=== PATIENT | male | born 1945 | race Caucasian/White ===

== ENCOUNTER 2021-02-09 08:20 | Outpatient (CLI) | payer MEDICARE, SELFPAY ==
[2021-02-09 09:12] LABS: Alanine Aminotransferase 23 U/L (16-63); Albumin Level 3.5 g/dL (3.4-5.0); Alkaline Phosphatase 58 U/L (46-116); Aspartate Amino Transferase 18 U/L (15-37); Bilirubin Direct 0.2 mg/dL (0-0.2); Bilirubin,Total 0.8 mg/dL (0.00-1.00); Cholesterol 140 mg/dL (0-200); HDL Direct 56 mg/dL (40-60); LDL Cholesterol Calculated 64 mg/dL (<130); Total Protein 6.3 g/dL (6.4-8.2); Triglycerides 102 mg/dL (0-150)
== END 2021-02-09 08:21 | disposition home or self-care (01) ==
DX: I25.10 Atherosclerotic heart disease of native coronary artery without angina pectoris (principal)
CPT/HCPCS: 36415; 80061; 80076

== ENCOUNTER 2021-02-17 15:27 | Outpatient (CLI) | payer MEDICARE, SELFPAY ==
--- NOTE | 2021-02-17 15:59 | ECG_ITS ---
Measurements Intervals [place] Rate: 61 P: 41 AL: 189 QRS: 22 QRSD: 98 T: 42 QT: 389 QTc: 394 Interpretive Statements SINUS RHYTHM BASELINE ARTIFACT- III, AVF NORMAL ECG Electronically Signed On 02-17-2021 20:28:59 CDT by Marck Bell D.O.
[2021-02-17 16:03] LABS: Hematocrit 39.5 % (42.0-52.0)
[2021-02-17 16:12] LABS: Hemoglobin A1C 6.2 % (<5.7)
[2021-02-17 16:19] LABS: Albumin Level 3.9 g/dL (3.5-5.1); Estimated Glomerular Filt Rate 35; Glucose 104 mg/dL (75-110)
== END 2021-02-17 15:28 | disposition home or self-care (01) ==
PROVIDERS: Visit Provider Orthopaedic Surgery
DX: M17.11 Unilateral primary osteoarthritis, right knee (principal); E11.9 Type 2 diabetes mellitus without complications; I10 Essential (primary) hypertension; Z01.818 Encounter for other preprocedural examination
CPT/HCPCS: 36415; 82040; 82565; 82947; 83036; 85014; 85018; 93005

== ENCOUNTER 2021-04-12 13:21 | Outpatient (CLI) | payer MEDICARE, SELFPAY ==
[2021-04-12 15:30] LABS: Basophils Percent Auto 0.6 % (0.2-1.2); Eosinophils Absolute Auto 0.2 K/mm3 (0-0.3); Eosinophils Percent Auto 2.9 % (0-4.4); Hemoglobin 13.9 g/dL (14.0-18.0); Immature Granulocyte Absolute 0.03 K/mm3 (0.00-0.031); Immature Granulocyte Percent A 0.4 % (0-0.5); Lymphocytes Absolute Auto 2.24 K/mm3 (0.9-3.2); Lymphocytes Percent Auto 31.2 % (18.3-44.2); Mean Corpuscular HGB Conc 33.9 g/dl (32-36); Mean Corpuscular Hemoglobin 30.2 pg (26-34); Mean Corpuscular Volume 89.1 fl (80-100); Mean Platelet Volume 9.2 fl (7.4-10.4); Monocytes Absolute Auto 0.7 K/mm3 (0.1-0.6); Monocytes Percent Auto 9.2 % (2.6-8.5); Neutrophils Percent Auto 55.7 % (45.5-73.1); Platelet Count Result 217 k/mm3 (150-375); Red Cell Distribution Width 13.2 % (11.5-14.5); White Blood Count 7.2 K/mm3 (4.5-10.0)
[2021-04-12 15:45] LABS: Hemoglobin A1C 6.3 % (<5.7)
[2021-04-12 15:48] LABS: Albumin Level 3.8 g/dL (3.5-5.1)
[2021-04-12 15:54] LABS: Anion Gap 8 mmol/L (8-16); Blood Urea Nitrogen 26 mg/dL (9-20); Carbon Dioxide 24 mmol/L (22-30); Chloride 101 mmol/L (98-107); Estimated Glomerular Filt Rate 39; Glucose 114 mg/dL (65-110); Potassium 4.2 mmol/L (3.4-5.0); Sodium 133 mmol/L (137-145)
[2021-04-12 15:55] LABS: Urine Cotinine NEGATIVE
== END 2021-04-12 13:22 | disposition home or self-care (01) ==
PROVIDERS: Anesthesiology; Visit Provider Orthopaedic Surgery
DX: M17.11 Unilateral primary osteoarthritis, right knee (principal); E11.9 Type 2 diabetes mellitus without complications; Z01.818 Encounter for other preprocedural examination
CPT/HCPCS: 36415; 80048; 80307; 82040; 83036; 85025; 87081

== ENCOUNTER 2021-04-24 11:00 | Outpatient (CLI) | payer MEDICARE, SELFPAY ==
[2021-04-24 11:15] LABS: Basophils Absolute Auto 0.05 K/mm3 (0.00-0.10); Basophils Percent Auto 0.6 % (0.0-1.0); Eosinophils Percent Auto 2.5 % (1.0-6.0); Hematocrit 43.2 % (37.0-46.0); Hemoglobin 14.6 g/dL (12.4-15.3); Immature Granulocyte Absolute 0.03 K/mm3 (0.00-0.00); Immature Granulocyte Percent A 0.4 % (0.0-0.0); Lymphocytes Absolute Auto 1.92 K/mm3 (1.10-4.50); Lymphocytes Percent Auto 23.8 % (18.0-42.0); Mean Corpuscular HGB Conc 33.8 g/dL (32.0-36.0); Mean Corpuscular Hemoglobin 30.3 pg (27.0-31.0); Mean Corpuscular Volume 89.6 fL (78.0-102.0); Mean Platelet Volume 8.9 fl (8.7-11.0); Monocytes Absolute Auto 0.77 K/mm3 (0.10-0.90); Monocytes Percent Auto 9.5 % (2.0-11.0); Neutrophils Absolute Auto 5.1 K/mm3 (1.7-7.2); Neutrophils Percent Auto 63.2 % (50.0-70.0); Platelet Count Result 245 K/mm3 (150-420); Red Blood Count 4.82 M/mm3 (4.70-6.10); Red Cell Distribution Width 13.1 % (11.6-14.4); White Blood Count 8.1 K/mm3 (4.8-10.8)
[2021-04-24 11:59] LABS: Alanine Aminotransferase 20 U/L (16-63); Albumin Level 3.4 g/dL (3.4-5.0); Alkaline Phosphatase 80 U/L (46-116); Anion Gap 12 mmol/L (8-16); Aspartate Amino Transferase 15 U/L (15-37); Bilirubin,Total 0.6 mg/dL (0.00-1.00); Blood Urea Nitrogen 28 mg/dL (7-18); Calcium 9.1 mg/dL (8.5-10.1); Carbon Dioxide 25 mmol/L (21-32); Chloride 103 mmol/L (98-108); Estimated Glomerular Filt Rate 36; Glucose 110 mg/dL (70-99); Osmolality Calculated 296 mOsm/kg (285-295); Potassium 4.7 mmol/L (3.5-5.1); Sodium 140 mmol/L (136-145)
== END 2021-04-24 11:01 | disposition home or self-care (01) ==
LOC: CHSLAB 11:05
PROVIDERS: Visit Provider Nurse Practitioner Family
DX: H92.09 Otalgia, unspecified ear (principal); I10 Essential (primary) hypertension; N28.89 Other specified disorders of kidney and ureter
CPT/HCPCS: 36415; 80053; 85025

== ENCOUNTER 2021-06-13 10:52 | Outpatient (CLI) | payer MEDICARE, SELFPAY ==
[2021-06-13 13:00] LABS: Urine Cotinine NEGATIVE
== END 2021-06-13 10:53 | disposition home or self-care (01) ==
LOC: ANHSURGERY 10:57
PROVIDERS: Visit Provider Orthopaedic Surgery
DX: Z01.812 Encounter for preprocedural laboratory examination (principal); M17.11 Unilateral primary osteoarthritis, right knee; Z51.81 Encounter for therapeutic drug level monitoring; Z79.899 Other long term (current) drug therapy
CPT/HCPCS: 80307; 86850; 86900; 86901

== ENCOUNTER 2021-06-22 01:12 | Day surgery (SDC) | payer MEDICARE, SELFPAY ==
[2021-04-12 13:46] VITALS: BP 138/70; PULSE 75; RESP 18; TEMP 36.8; O2SAT 94
[2021-04-12 14:20] VITALS: BMI 37.6
[2021-06-08 14:49] VITALS: BMI 36.9
--- NOTE | 2021-06-08 14:53 | PC.NURSE ---
PT STATES NO CHANGE IN HEALTH HX SINCE LAST INTERVIEW ON 04/12/21
--- NOTE | 2021-06-21 13:58 | WPDANESEPPF ---
Anes - Initial Pre Proc Eval Procedure: Operation Date: 06/22/21 07:30 Proposed Procedures p Right Total Knee Arthroplasty - Aristeo Islas MD Date/Time: 06/21/21 13:58 Surgeon: Aristeo Islas MD Pre Op Diagnosis: primary OA right knee Patient Data Age: 76 Gender: M Height: 1.75 m Weight: 113.4 kg Last Vital Signs Temp 36.8 C 04/12/21 13:46 Pulse 75 04/12/21 13:46 Resp 18 04/12/21 13:46 BP 138/70 04/12/21 13:46 Pulse Ox 94 04/12/21 13:46 Allergies Allergy/AdvReac Type Severity Reaction Status Date / Time Penicillins Allergy Unknown ITCHING, Verified 06/08/21 14:28 SWELLING Home Medications Medication Instructions Recorded Confirmed Type aspirin 81 mg tablet,delayed 81 mg PO EVERY OTHER DAY 01/24/21 06/22/21 History release cholecalciferol (vitamin D3) 10 10 mcg PO DAILY 01/24/21 06/22/21 History mcg (400 unit) capsule diclofenac sodium 1 % topical gel 2 g TOPICAL QID PRN 01/24/21 06/08/21 History fluticasone propionate 50 2 spray INTRANASAL DAILY 01/24/21 06/22/21 History mcg/actuation nasal spray,suspension glucose 4 gram chewable tablet 4 g PO Q15M PRN 01/24/21 06/08/21 History isosorbide mononitrate 60 mg 60 mg PO QAM 01/24/21 06/22/21 History tablet,extended release 24 hr ketoconazole 2 % topical cream 1 applic TOPICAL DAILY 01/24/21 06/08/21 History metoprolol succinate 50 mg 50 mg PO HS 01/24/21 06/22/21 History tablet,extended release 24 hr pioglitazone 30 mg tablet 30 mg PO QAM 01/24/21 06/22/21 History psyllium 1 tbsp PO DAILY 01/24/21 06/22/21 History semaglutide 1 mg/dose (2 mg/1.5 1 mg SUBCUT WEEKLY 01/24/21 06/22/21 History mL) subcutaneous pen injector tamsulosin 0.4 mg capsule 0.4 mg PO DAILY 01/24/21 06/22/21 History verapamil 240 mg 24 hr 240 mg PO HS 01/24/21 06/22/21 History capsule,extended release acetaminophen [Tylenol Arthritis] 1,300 mg PO Q12H PRN 04/12/21 06/22/21 History finasteride 5 mg PO DAILY 04/12/21 06/22/21 History gabapentin 300 mg capsule 900 mg PO BID cap 04/12/21 06/22/21 History insulin glargine 100 unit/mL (3 20 unit SUBCUT QPM ml 04/12/21 06/22/21 History mL) subcutaneous pen lisinopril-hydrochlorothiazide 1 tablet PO DAILY 04/12/21 06/22/21 History metformin 1,000 mg tablet 500 mg PO BID 04/12/21 06/22/21 History ECG: Date of Service: 02/17/21 Procedure(s): CA 12 lead EKG Accession Number(s): [id number] cc: ~ Measurements Intervals [place] Rate: 61 P: 41 [place]: 189 QRS: 22 QRSD: 98 T: 42 QT: 389 QTc: 394 Interpretive Statements SINUS RHYTHM BASELINE ARTIFACT- III, AVF NORMAL ECG Electronically Signed On 02-17-2021 20:28:59 CDT by Marck Bell D.O. Dictated By: Marck Bell DO 02/17/212027 Patient hx anesthesia problems: none Family hx anesthesia problems: none Results Review: All pre-operative results and documents have been reviewed as part of the pre-operative evaluation. [facility] Past Medical History Medical History (Updated 06/21/21 @ 14:00 by Rhett Aguirre MD) BPH (benign prostatic hyperplasia) CKD (chronic kidney disease) stage 3, GFR 30-59 ml/min Diabetes History of cardiac disorder Hyperlipidemia Hypertension Obesity Osteoarthritis Synovial cyst of popliteal space [Nieto], right knee Surgical History Surgical History History of hemorrhoidectomy History of repair of left rotator cuff History of right knee surgery Removal of Cartilage History of skin graft Rt Leg Family History Family History Mother Arthritis Social History Social History (R
[2021-06-22] VITALS (15 sets, daily range): BP systolic 97–143; BP diastolic 59–82; PULSE 62–85; RESP 11–20; TEMP 36.1–36.8; O2SAT 93–100
--- NOTE | ~2021-06-22 | XR_ITS ---
EXAMINATION: XR knee RT 2V EXAM DATE: 06/22/2021 09:55 INDICATION: Right knee replacement.. TECHNIQUE: Portable frontal, crosstable lateral projections right knee obtained immediately followin g arthroplasty performed by orthopedic surgeon Aristeo Islas MD. FINDINGS: Patient is status post total right knee arthroplasty. The orthopedic hardware is in expec elva position. There is small amount of subcutaneous gas, gas within the knee joint space. Overlying soft tissue swelling. Correlate with procedure note. There are arterial calcifications, arterioscler osis. IMPRESSION: Status post total right knee arthroplasty. Reviewed, dictated and finalized at location A.
[2021-06-22] MEDS: ACETAMINOPHEN 500 MG TABLET 1000 MG PO (06:40)
[2021-06-22] MEDS: LACTATED RINGERS 1,000 ML 30 ML IV CONT ×2 (06:45→09:42)
[2021-06-22 06:51] LABS: Glucose Point of Care 135 mg/dl (65-105)
[2021-06-22] MEDS: TRANEXAMIC ACID 1,000MG/ISO100 1,000 MG/100 ML BAG 200 MG IVPB (06:55)
--- NOTE | 2021-06-22 07:12 | WPDHPUPDATE1 ---
History and Physical Update Update Date/Time: 06/22/21 07:12 History and Physical has been reviewed, including an updated exam of the patient. There are NO changes in the patient's condition. Risks, benefits, and alternatives have been discussed and questions answered. Patient agrees to proceed with procedure.
--- NOTE | 2021-06-22 07:30 | WPDANESPNB ---
Anes - Peripheral Nerve Block Date/Time: 06/22/21 07:30 I have discussed with the patient/family/POA the placement of a peripheral nerve block for post-operative pain management, including associated risks, benefits, complications, and side effects. Alternative methods of post-operative analgesia were detailed. Questions were solicited and answers provided to the satisfaction of the patient/family/POA. Time-Out: A pre-procedural Time-Out was completed immediately before starting the procedure and confirmed: Patient Identification, Site, Procedure, Patient Position and the Availability of Requisite Equipment. Clinical Indications: Acute post-operative pain management requested by the operative surgeon. Nerve Block Insertion Note Anes-nerve block: adductor canal right Patient position: supine Skin prep: chlorhexidine Needle: 22 gauge, stimulating, insulated echogenic needle. Needle length: 80 mm Technique: ultrasound Technique comment: in plane Injectate: bupivacaine 0.5% with epi 5 mcg/ml (30cc) Observations: tolerated well Complications: none Procedure start time:: 725 Procedure end time:: 730
[2021-06-22] MEDS: ceFAZolin 2 GM/D5W 50 ML 2 GM/50 ML BAG IVPB ×3 (07:33→23:29)
[2021-06-22] MEDS: GENTAMICIN BONE CEMENT REFOBACIN 1 EACH TOPICAL (09:01)
[2021-06-22 09:55] LABS: Glucose Point of Care 168 mg/dl (65-105)
--- NOTE | 2021-06-22 10:06 | P.OP_ITS ---
Procedure Note - Detailed Date of Procedure 06/22/21 Pre-op Diagnosis Primary OA right knee Post-op Diagnosis same Procedure Performed Right total knee arthroplasty. Surgeon Aristeo Islas MD Professional Soccer Player Renetta Carpio PA-C Anesthesia general Description of Procedure The patient was brought to the operating room. A general anesthetic was administered. The leg was prepped and draped in the usual sterile fashion. The limb was elevated and the tourniquet inflated to 300 mmHg during initial exposure, and cementation. A longitudinal incision was created along the medial border of the patella and patellar tendon, and a minimally invasive optimized mid-vastus approach to the knee was performed. A moderate medial release was taken. The knee was then flexed. The osteophytes were carefully removed. The intramedullary guide was placed in the femoral canal. The distal femoral resection was then taken with the oscillating saw. The collateral ligaments were carefully protected. The tibia was carefully exposed. The jig was applied, and the proximal tibia was resected according to preoperative plan. The knee was balanced in extension. Appropriate releases were taken where needed. The anterior cruciate ligament and meniscal remnants were removed. The posterior cruciate ligament was preserved. The patella was measured. Patellar resection was carried out with the oscillating saw. The lug holes drilled. The femur was sized and rotation assessed using a combination of gap balancing, posterior referencing, and the AP axis. The 4 in 1 cutting block was used to finish the femoral cuts after equal gaps were assured. The osteophytes were carefully removed from the back of the knee. The knee was copiously irrigated with antibiotic solution periodically throughout the procedure. The meniscal remnants were removed. The spacer block was used to confirm equal flexion and extension gaps. Further releases were not needed. The tibia was sized and broached. The bony surfaces were prepared for cementing with pulsatile lavage. The real tibial and femoral and patellar components were cemented into position. Excess cement was carefully removed. Patellar tracking was carefully assessed. No additional releases were required. Copious irrigation then performed. The wo und was closed with #1 Vicryl suture, #2 Quill suture, 0-Quill suture, and 2-0 Quill suture followed by Steri-Strips. A sterile bulky dressing was applied. Meticulous hemostasis was maintained throughout the procedure. The pain relieving mixture was injected into the periarticular tissues during the procedure. There were no complications. The patient was extubated and brought to the recovery room in stable condition after the application of sterile dressing with Joe bandage. Physician commercial lines assistant, Renetta Carpio PA-C, required for surgery; including patient positioning, draping, tissue retraction, maintaining instrument position, cement removal, wound closure, and dressing placement. Implants GridBridge Triathlon knee system, low profile cemented tibia size 7, cemented cruciate retaining femoral component size 7 ,and an 11 mm cruciate retaining polyethylene insert. 38mm asymmetric all polyethylene patella component. Estimated Blood Loss 100 Drains No Packing No Pathology none sent Complications No immediate complications Condition stable Disposition PACU
--- NOTE | 2021-06-22 10:28 | SUR.PHASEI ---
1023 sbar faxed floor notified
--- NOTE | 2021-06-22 11:26 | ADMGEN ---
This patient, Colin Johnson, was admitted to 2 Medical Room 260-01. Patient/family oriented to hospital policies and general routines including ID bracelet, bed and alarms, visiting hours, pain management, procedures, bathroom and other care routines, personal items, smoking policy, room service/diet, and visiting hours. Information on how to activate the Rapid Response Team has been discussed. Patient/Family are encouraged to report perceived risks to care and to ask questions if they do not understand what they are told or what they should do.
[2021-06-22] MEDS: TAMSULOSIN HCL 0.4 MG CAPSULE PO (11:39)
[2021-06-22] MEDS: CHOLECALCIFEROL 400 UNITS TABLET (VIT D) PO (11:40)
[2021-06-22] MEDS: FINASTERIDE 5 MG TABLET PO (11:40)
[2021-06-22] MEDS: hydroCHLOROthiazide 12.5 MG CAPSULE PO (11:41)
[2021-06-22] MEDS: PIOGLITAZONE HCL 30 MG TABLET PO (11:41)
[2021-06-22] MEDS: lisinopriL 10 MG TABLET PO (11:41)
[2021-06-22 12:21] LABS: Glucose Point of Care 158 mg/dl (65-105)
--- NOTE | 2021-06-22 14:00 | WPDCN ---
Assessment and Plan Assessment and plan (1) Arthritis of right knee: Code(s): M17.11 - Unilateral primary osteoarthritis, right knee Status: Acute Assessment and Plan: Postoperative day 0, status post right total knee replacement. Wound care and pain control deferred to Dr. Islas as well as DVT prophylaxis. PT/OT consulted. Fall precautions initiated. (2) Insulin dependent type 2 diabetes mellitus: Code(s): E11.9 - Type 2 diabetes mellitus without complications; Z79.4 - rn long term care (current) use of insulin Status: Acute Assessment and Plan: Continue basal insulin. Initiate sliding scale insulin, Accu-Cheks, and hypoglycemic protocol. (3) Hypertension: Code(s): I10 - Essential (primary) hypertension Status: Chronic Assessment and Plan: Blood pressures were reviewed and they have been stable postoperatively. Continue antihypertensives and monitor daily. (4) Chronic kidney disease, stage 3: Code(s): N18.30 - Chronic kidney disease, stage 3 unspecified Status: Acute Assessment and Plan: Check renal function in a.m. (5) Benign prostatic hyperplasia: Code(s): N40.0 - Benign prostatic hyperplasia without lower urinary tract symptoms Status: Acute Assessment and Plan: Continue finasteride and tamsulosin. Bladder scan x1 to ensure he is not retaining urine. Monitor I/O. Additional Plan Thank you for allowing us to participate in this patient's care. Please do not hesitate to contact us with any questions. Supervising physician for this medical consultation is Dr. Torey Burt. HPI Data of Consult Date/Time: 06/22/21 14:00 Requesting Physician: Aristeo Islas MD Primary Care Provider: Ovidio Carbajal Consult Narrative Narrative: This is a 76-year-old male with degenerative joint disease, hypertension, diabetes, and chronic kidney disease whom the hospitalist service has been consulted for management of his medical conditions postoperatively. He has had longstanding pain in both of his knees, right greater than left. Unfortunately conservative outpatient management has not provided him with long-lasting relief and thus he elected for replacement today. His surgery was performed under general anesthesia with no immediate complications documented an estimated blood loss of 100 mL. At the time my evaluation he is resting comfortably in bed and has no pain whatsoever. He has been up with physical therapy into the chair without issue. He denies postoperative fever, chills, sweats, chest pain, shortness of breath, nausea, and vomiting. He also denies paresthesias, skin color, and temperature changes distal to the surgical site. Review of Systems Review of Systems: Twelve systems were reviewed. No recent cold or flu symptoms. He denies cough and shortness of breath. No chest pain. He has not urinated since surgery and has had issues emptying his bladder for several years for which he takes tamsulosin and finasteride. He denies dysuria. No history of venous thromboembolism. He reports his diabetes is well controlled with a recent hemoglobin A1c of right around 7% or even a bit less. Except as documented, all other systems were reviewed and are negative. [facility] Past Medical History Medical History (Updated 06/22/21 @ 21:34 by Betzy Acharya PA-C) Benign prostatic hyperplasia Chronic kidney disease, stage 3 Diabetic peripheral neuropathy Hyperlipidemia Hypertension Insulin dependent type 2 diabetes mellitus Mild coronary artery disease Patient reports mild, nonobstructing coronary artery disease noted on prior cardiac catheterization. Obesity Osteoarthritis Synovial cyst of popliteal space [Nieto], right knee Surgical History Surgical History (Updated 06/22/21 @ 21:34 by Betzy Acharya PA-C) History of arthroplast
[2021-06-22 16:38] LABS: Glucose Point of Care 186 mg/dl (65-105)
[2021-06-22] MEDS: ASPIRIN 81 MG ENTERIC TABLET PO (16:44)
[2021-06-22] MEDS: DOCUSATE SODIUM 100 MG CAPSULE PO (16:44)
[2021-06-22] MEDS: metFORMIN HCL 500 MG TABLET PO (16:44)
[2021-06-22] MEDS: INSULIN GLARGINE (*BKC) 100 UNITS/ML 20 UNITS SUB-Q (18:20)
[2021-06-22] MEDS: METOPROLOL SUCCINATE EXT REL 50 MG TABCR PO (20:34)
[2021-06-22] MEDS: FAMOTIDINE 20 MG TABLET PO (20:34)
[2021-06-22] MEDS: GABAPENTIN 300 MG CAPSULE 900 MG PO (20:34)
[2021-06-22] MEDS: VERAPAMIL HCL ER 120 MG TABLET 240 MG PO (20:35)
[2021-06-22 23:19] LABS: Glucose Point of Care 160 mg/dl (65-105)
[2021-06-23 05:10] VITALS: BP 148/74; PULSE 108; RESP 16; TEMP 36.2; O2SAT 92
[2021-06-23 06:38] LABS: Hematocrit 37.5 % (42.0-52.0); Hemoglobin 12.6 g/dL (14.0-18.0); Mean Corpuscular HGB Conc 33.6 g/dl (32-36); Mean Corpuscular Hemoglobin 30.7 pg (26-34); Mean Corpuscular Volume 91.2 fl (80-100); Mean Platelet Volume 9.8 fl (7.4-10.4); Platelet Count Result 211 k/mm3 (150-375); Red Blood Count 4.11 M/mm3 (4.6-6.20); Red Cell Distribution Width 13.5 % (11.5-14.5); White Blood Count 8.8 K/mm3 (4.5-10.0)
[2021-06-23 06:42] LABS: Alanine Aminotransferase 15 U/L (4-50); Albumin Level 3.7 g/dL (3.5-5.1); Alkaline Phosphatase 53 U/L (38-126); Anion Gap 7 mmol/L (8-16); Aspartate Amino Transferase 36 U/L (17-59); Bilirubin,Total 0.6 mg/dL (0.2-1.3); Blood Urea Nitrogen 39 mg/dL (9-20); Calcium 8.6 mg/dL (8.4-10.2); Carbon Dioxide 26 mmol/L (22-30); Chloride 100 mmol/L (98-107); Estimated CRCL calculation 36 ml/min; Estimated Glomerular Filt Rate 34; Glucose 133 mg/dL (65-110); Potassium 5.2 mmol/L (3.4-5.0); Sodium 133 mmol/L (137-145)
[2021-06-23] MEDS: ceFAZolin 2 GM/D5W 50 ML 2 GM/50 ML BAG IVPB (06:43)
[2021-06-23 07:57] LABS: Glucose Point of Care 123 mg/dl (65-105)
--- NOTE | 2021-06-23 08:35 | P.PNIM_ITS ---
Progress Note: A&P Assessment and Plan (1) Arthritis of right knee: Code(s): M17.11 - Unilateral primary osteoarthritis, right knee Status: Acute Assessment and Plan: * Postoperative day 1 status post right total knee replacement with Dr. Islas on 06/22/21 * Wound care and pain control deferred to Dr. Islas as well as DVT prophylaxis * Pain control: Roxicodone 5-10mg PO Q4hr * Antiemetics 4mg IV Q4hr * Antibiotics: Ancef 2gm x3 bags * PT/OT consulted * Fall precautions initiated. (2) Insulin dependent type 2 diabetes mellitus: Code(s): E11.9 - Type 2 diabetes mellitus without complications; Z79.4 - extermination supervisor (current) use of insulin Status: Acute Assessment and Plan: * Current glucose 133 * Continue basal insulin * Initiate sliding scale insulin * Accu-Cheks * hypoglycemic protocol * trend labs * adjust medications as needed (3) Hypertension: Code(s): I10 - Essential (primary) hypertension Status: Chronic Assessment and Plan: * current blood pressure 148/74 * continue home Imdur 60 mg p.o. daily, hydrochlorothiazide 12.5 mg p.o. daily, metoprolol 50 mg p.o. at night, for rapid mental 240 mg p.o. at night lisinopril 10 mg p.o. daily * trend blood pressure * adjust medications as needed (4) Chronic kidney disease, stage 3: Code(s): N18.30 - Chronic kidney disease, stage 3 unspecified Status: Acute Assessment and Plan: * BUN/creatinine 39/1.9 * seems to be at baseline * continue to trend renal function * strict I&Os (5) Benign prostatic hyperplasia: Code(s): N40.0 - Benign prostatic hyperplasia without lower urinary tract symptoms Status: Acute Assessment and Plan: * Continue finasteride and tamsulosin * Bladder scan x1 to ensure he is not retaining urine * Monitor I/O * Patient is requesting a urology provider to follow up with (6) Hyperkalemia: Code(s): E87.5 - Hyperkalemia Status: Acute Assessment and Plan: * K slightly elevated 5.2 * Probably from CKD * Trend labs * Avoid potassium rich foods. Time Spent With Patient Time with patient: 25 - 35 minutes Subjective Date/time seen: 06/23/21 08:35 Interval history: Patient is a 76-year-old male who is here for an elective total knee replacement of the right with Dr. Islas on 06/22/2021. Patient states that he is doing well today. He has been getting up being going to the b athroom. Pain has been controlled well. He was working with PT and OT and was able to get himself dressed and up to the bathroom. Patient denies chest pain, shortness of breath, weakness, fatigue, sweats, fevers, chills. Gait is steady and patient uses the walker and does well when walking. Review of Systems Review of Systems: All systems reviewed & are unremarkable except as noted in HPI and below Exam Const: General: cooperative, healthy appearing, comfortable, no acute distress, well developed, alert, awake and Physically active Nutritional Appearance: well nourished and overweight Orientation/consciousness: oriented to person, oriented to place, oriented to time and patient oriented x3 Limitations: no limitations HENMT: Head: normal to inspection Ears: hearing grossly normal bilaterally General nose exam: Normal external nose present Mouth: Yes Normal oral and palatal mucosa present, Yes lip normal and Yes tongue normal Teeth and gingiva: abnor
--- NOTE | 2021-06-23 08:35 | PM.IMPN ---
Progress Note: A&P Assessment and Plan (1) Arthritis of right knee: Code(s): M17.11 - Unilateral primary osteoarthritis, right knee Status: Acute Assessment and Plan: Postoperative day 1 status post right total knee replacement with Dr. Islas on 06/22/21 Wound care and pain control deferred to Dr. Islas as well as DVT prophylaxis Pain control: Roxicodone 5-10mg PO Q4hr Antiemetics 4mg IV Q4hr Antibiotics: Ancef 2gm x3 bags PT/OT consulted Fall precautions initiated. (2) Insulin dependent type 2 diabetes mellitus: Code(s): E11.9 - Type 2 diabetes mellitus without complications; Z79.4 - watermaster (current) use of insulin Status: Acute Assessment and Plan: Current glucose 133 Continue basal insulin Initiate sliding scale insulin Accu-Cheks hypoglycemic protocol trend labs adjust medications as needed (3) Hypertension: Code(s): I10 - Essential (primary) hypertension Status: Chronic Assessment and Plan: current blood pressure 148/74 continue home Imdur 60 mg p.o. daily, hydrochlorothiazide 12.5 mg p.o. daily, metoprolol 50 mg p.o. at night, for rapid mental 240 mg p.o. at night lisinopril 10 mg p.o. daily trend blood pressure adjust medications as needed (4) Chronic kidney disease, stage 3: Code(s): N18.30 - Chronic kidney disease, stage 3 unspecified Status: Acute Assessment and Plan: BUN/creatinine 39/1.9 seems to be at baseline continue to trend renal function strict I&Os (5) Benign prostatic hyperplasia: Code(s): N40.0 - Benign prostatic hyperplasia without lower urinary tract symptoms Status: Acute Assessment and Plan: Continue finasteride and tamsulosin Bladder scan x1 to ensure he is not retaining urine Monitor I/O Patient is requesting a urology provider to follow up with (6) Hyperkalemia: Code(s): E87.5 - Hyperkalemia Status: Acute Assessment and Plan: K slightly elevated 5.2 Probably from CKD Trend labs Avoid potassium rich foods. Time Spent With Patient Time with patient: 25 - 35 minutes Subjective Date/time seen: 06/23/21 08:35 Interval history: Patient is a 76-year-old male who is here for an elective total knee replacement of the right with Dr. Islas on 06/22/2021. Patient states that he is doing well today. He has been getting up being going to the bathroom. Pain has been controlled well. He was working with PT and OT and was able to get himself dressed and up to the bathroom. Patient denies chest pain, shortness of breath, weakness, fatigue, sweats, fevers, chills. Gait is steady and patient uses the walker and does well when walking. Review of Systems Review of Systems: All systems reviewed & are unremarkable except as noted in HPI and below Exam Const: General: cooperative, healthy appearing, comfortable, no acute distress, well developed, alert, awake and Physically active Nutritional Appearance: well nourished and overweight Orientation/consciousness: oriented to person, oriented to place, oriented to time and patient oriented x3 Limitations: no limitations HENMT: Head: normal to inspection Ears: hearing grossly normal bilaterally General nose exam: Normal external nose present Mouth: Yes Normal oral and palatal mucosa present, Yes lip normal and Yes tongue normal Teeth and gingiva: abnormal tooth and associated gingiva and poor dentition Eyes: General: appearance normal, both eyes and all related structures Neck: Neck: normal visual inspection, full ROM, trachea midline and supple Chest: Chest palpation & inspection: normal inspection of the chest Resp: Effort & Inspection: normal respiratory effort and able to speak in complete sentences Auscultation: clear to auscultation bilaterally Cardio: Jugular venous distension: no JVD Rate: regular rate Rhythm: regular rhythm Heart so
[2021-06-23] MEDS: ASPIRIN 81 MG ENTERIC TABLET PO (08:43)
[2021-06-23] MEDS: PIOGLITAZONE HCL 30 MG TABLET PO (08:43)
[2021-06-23] MEDS: GABAPENTIN 300 MG CAPSULE 900 MG PO (08:43)
[2021-06-23] MEDS: TAMSULOSIN HCL 0.4 MG CAPSULE PO (08:43)
[2021-06-23] MEDS: lisinopriL 10 MG TABLET PO (08:43)
[2021-06-23] MEDS: ISOSORBIDE MONONITRATE 60 MG TAB.ER.24H PO (08:43)
[2021-06-23] MEDS: hydroCHLOROthiazide 12.5 MG CAPSULE PO (08:43)
[2021-06-23] MEDS: FAMOTIDINE 20 MG TABLET PO (08:44)
[2021-06-23] MEDS: FINASTERIDE 5 MG TABLET PO (08:44)
[2021-06-23] MEDS: DOCUSATE SODIUM 100 MG CAPSULE PO (08:44)
[2021-06-23] MEDS: CHOLECALCIFEROL 400 UNITS TABLET (VIT D) PO (08:44)
[2021-06-23] MEDS: metFORMIN HCL 500 MG TABLET PO (08:44)
[2021-06-23 08:45] VITALS: RESP 16; O2SAT 92
[2021-06-23] MEDS: PSYLLIUM POWDER PACKET 1 PACKET PO (08:45)
[2021-06-23 09:41] VITALS: O2SAT 88
[2021-06-23 10:35] VITALS: BP 131/74; PULSE 70; RESP 16; TEMP 36.4; O2SAT 96
[2021-06-23 11:50] LABS: Glucose Point of Care 99 mg/dl (65-105)
[2021-06-23] MEDS: oxyCODONE HCL (*CRX) 5 MG TAB IR PO (12:55)
[2021-06-23 14:35] VITALS: BP 133/72; PULSE 77; RESP 18; TEMP 36.7; O2SAT 95
--- NOTE | 2021-06-23 14:54 | PM.DS ---
DS: Admitting Diagnosis Discharge Date 06/23/21 Admitting Diagnosis OA knee DS: Discharge Diagnosis Discharge Diagnosis (1) Arthritis of right knee: Code(s): M17.11 - Unilateral primary osteoarthritis, right knee Status: Acute DS: Summary Hospital Course Reason for hospitalization: Total knee arthroplasty. Hospital Course: Tolerated surgery well. Progressed appropriately with therapy. Status at Discharge Functional status at discharge: uses cane/walker Overall status at discharge: patient is progressing back to baseline Time Spent with Patient Time attestation: Total time spent providing and/or coordinating discharge services: Exam Const: General: no acute distress Resp: Effort & Inspection: normal respiratory effort Skin: Other: Wound healing well. Mepilex dressing intact. No hematoma or drainage. Neuro: Motor exam (neuro): 5/5 motor strength present throughout Sensory Exam: normal sensation Psych: Mental Status: mental status grossly normal Speech and movement: Normal speech and movement present DS: Data Data Completed and Pending Labs on day of discharge: Labs from last 24 hours 06/23/21 06/23/21 06/23/21 11:46 06:47 05:13 WBC RBC Hgb Hct MCV MCH MCHC RDW Plt Count MPV Sodium 133 L Potassium 5.2 H Chloride 100 Carbon Dioxide 26 Anion Gap 7 L BUN 39 H D Creatinine 1.90 H Estim Creat Clear Calc 36 Estimated GFR 34 L Glucose 133 H POC Capillary Glucose 99 123 H Calcium 8.6 Magnesium 2.0 Total Bilirubin 0.6 AST 36 ALT 15 Alkaline Phosphatase 53 Total Protein 6.0 L Albumin 3.7 06/23/21 06/22/21 06/22/21 05:13 20:39 16:35 WBC 8.8 RBC 4.11 L Hgb 12.6 L Hct 37.5 L MCV 91.2 MCH 30.7 MCHC 33.6 RDW 13.5 Plt Count 211 MPV 9.8 Sodium Potassium Chloride Carbon Dioxide Anion Gap BUN Creatinine Estim Creat Clear Calc Estimated GFR Glucose POC Capillary Glucose 160 H 186 H Calcium Magnesium Total Bilirubin AST ALT Alkaline Phosphatase Total Protein Albumin Discharge Plan Discharge Patient Disposition: Home, Self-Care Discharge Instructions: See instruction sheet. Patient Instructions: Pain Management (DC), Joint Replacement Surgery (DC), Knee Replacement (DC) Follow-up/Referrals: Aristeo Islas MD [Physician] - Discharge Medications: New oxycodone-acetaminophen 5-325 mg tablet 1 - 2 tablet PO Q4-6H MDD 8 tablets PRN (Reason: pain) Qty: 30 RF: 0 No Action cholecalciferol (vitamin D3) 10 mcg (400 unit) capsule 10 mcg PO DAILY RF: 0 diclofenac sodium [Arthritis Pain (diclofenac)] 1 % gel 2 g topical QID PRN (Reason: Pain) RF: 0 fluticasone propionate 50 mcg/actuation spray,suspension 2 spray intranasal DAILY RF: 0 glucose [Dex4 Glucose] 4 gram tablet,chewable 4 g PO Q15M PRN (Reason: Hypoglycemia) RF: 0 isosorbide mononitrate 60 mg tablet extended release 24 hr 60 mg PO QAM RF: 0 ketoconazole 2 % cream 1 applic topical DAILY RF: 0 metoprolol succinate 50 mg tablet extended release 24 hr 50 mg PO HS RF: 0 pioglitazone 30 mg tablet 30 mg PO QAM RF: 0 Ozempic 1 mg/dose (2 mg/1.5 mL) pen injector 1 mg subcut WEEKLY RF: 0 tamsulosin 0.4 mg capsule 0.4 mg PO DAILY RF: 0 verapamil 240 mg capsule,ext rel. pellets 24 hr 240 mg PO HS RF: 0 aspirin [Adult Aspirin Regimen] 81 mg tablet,delayed release (DR/EC) 81 mg PO EVERY OTHER DAY RF: 0 psyllium Powder 1 tbsp PO DAILY RF: 0 gabapentin 300 mg capsule 900 mg PO BID RF: 0 insulin glargine 100 unit/mL (3 mL) insulin pen 20 unit subcut QPM RF: 0 metformin 1,000 mg tablet 500 mg PO BID RF: 0 acetaminophen [Tylenol Arthritis] 650 mg Tablet Extended Release 1,300 mg PO Q12H PRN (Reason: Pain) RF: 0 lisinopril-hydrochloroth
== END 2021-06-23 15:55 | disposition home or self-care (01) ==
LOC: ANHSURGERY 06:07 → ANH2MED 11:22
PROVIDERS: Physician Assistant; Visit Provider Orthopaedic Surgery
PROC: (CPT 27447; principal; 2021-06-22 07:30)
DX: M17.11 Unilateral primary osteoarthritis, right knee (principal); G89.18 Other acute postprocedural pain; E11.9 Type 2 diabetes mellitus without complications; I12.9 Hypertensive chronic kidney disease with stage 1 through stage 4 chronic kidney disease, or unspecified chronic kidney disease; N18.30 Chronic kidney disease, stage 3 unspecified; N40.0 Benign prostatic hyperplasia without lower urinary tract symptoms; E78.5 Hyperlipidemia, unspecified; Z79.82 Long term (current) use of aspirin; E11.22 Type 2 diabetes mellitus with diabetic chronic kidney disease; M19.90 Unspecified osteoarthritis, unspecified site; Z87.891 Personal history of nicotine dependence; E66.9 Obesity, unspecified; Z68.36 Body mass index [BMI] 36.0-36.9, adult
CPT/HCPCS: 27447; 64447; 36415; 73560; 80053; 82948; 83735; 85027; 97110; 97116; 97161; 97165; 97530; A9270; C1713; C1776; J0131; J0171; J0690; J1100; J1170; J1815; J1885; J2250; J2270; J2405; J2704; J2795; J3010; J7120

== ENCOUNTER 2023-02-28 10:24 | Outpatient (CLI) | payer MEDICARE, SELFPAY ==
[2023-02-28 11:15] LABS: Alanine Aminotransferase 22 U/L (16-63); Albumin Level 3.4 g/dL (3.4-5.0); Alkaline Phosphatase 73 U/L (46-116); Aspartate Amino Transferase 18 U/L (15-37); Bilirubin Direct 0.2 mg/dL (0-0.2); Bilirubin,Total 0.8 mg/dL (0.00-1.00); Cholesterol 161 mg/dL (0-200); HDL Direct 50 mg/dL (40-60); LDL Cholesterol Calculated 81 mg/dL (<130); Total Protein 6.5 g/dL (6.4-8.2); Triglycerides 151 mg/dL (0-150)
== END 2023-02-28 10:25 | disposition home or self-care (01) ==
DX: E78.00 Pure hypercholesterolemia, unspecified (principal)
CPT/HCPCS: 36415; 80061; 80076

== ENCOUNTER 2023-04-25 15:57 | Emergency (ER) | payer MEDICARE, SELFPAY ==
--- NOTE | ~2023-04-25 | XR_ITS ---
EXAMINATION: XR chest 1V portable Exam Date/Time: 04/25/2023 16:35 CDT HISTORY: Cough and congestion Comparison: 12/20/2014. RESULT: Lines, tubes, and devices: None. Lungs and pleura: Clear. Cardiomediastinal silhouette: Stable. Other: No acute osseous or upper abdominal finding. IMPRESSION: No acute cardiopulmonary process. Reviewed, dictated and finalized at location K.
[2023-04-25 15:59] VITALS: BP 149/85; PULSE 105; RESP 20; O2SAT 95
[2023-04-25 16:13] VITALS: TEMP 37.8
[2023-04-25 16:42] LABS: Hematocrit 42.3 % (37.0-46.0); Hemoglobin 14.4 g/dL (12.4-15.3); Mean Corpuscular Hemoglobin 31.9 pg (27.0-31.0); Mean Corpuscular Volume 93.6 fL (78.0-102.0); Mean Platelet Volume 9.2 fl (8.7-11.0); Platelet Count Result 157 K/mm3 (150-420); Red Blood Count 4.52 M/mm3 (4.70-6.10); Red Cell Distribution Width 12.6 % (11.6-14.4); White Blood Count 3.5 K/mm3 (4.8-10.8)
[2023-04-25 16:57] LABS: Alanine Aminotransferase 21 U/L (16-63); Albumin Level 3.5 g/dL (3.4-5.0); Alkaline Phosphatase 74 U/L (46-116); Anion Gap 8 mmol/L (8-16); Aspartate Amino Transferase 28 U/L (15-37); Bilirubin,Total 0.5 mg/dL (0.00-1.00); Blood Urea Nitrogen 26 mg/dL (7-18); Calcium 8.4 mg/dL (8.5-10.1); Carbon Dioxide 27 mmol/L (21-32); Chloride 102 mmol/L (98-108); Estimated CRCL calculation 26 ml/min; Estimated Glomerular Filt Rate 25; Glucose 154 mg/dL (70-99); Osmolality Calculated 291 mOsm/kg (285-295); Potassium 5.2 mmol/L (3.5-5.1); Sodium 137 mmol/L (136-145); Total Protein 6.9 g/dL (6.4-8.2)
[2023-04-25 17:22] LABS: Band Neutrophils Percent 0 % (0-6); Neutrophils Absolute Manual 2.87 K/mm3 (1.3-6.7); Neutrophils Percent Manual 82 % (46-73); Total Cells Counted 100
[2023-04-25 17:23] LABS: Eosinophils Absolute Manual 0.21 K/mm3 (0.02-0.5); Eosinophils Percent Manual 6 % (1-6); Lymphocytes Absolute Manual 0.14 K/mm3 (1.1-4.5); Lymphocytes Percent Manual 4 % (18-44); Monocytes Absolute Manual 0.28 K/mm3 (0.1-0.90); Monocytes Percent Manual 8 % (3-9); Platelet Estimate Adequate (Adequate)
[2023-04-25 17:26] LABS: Influenza A QL RT-PCR Negative (Negative); Influenza B QL RT-PCR Negative (Negative); SARS-CoV-2 RNA PCR Negative (Negative)
--- NOTE | 2023-04-25 17:39 | ED.FEVER ---
HPI - Fever General Chief Complaint: Fever Stated Complaint: cough, fever, chills Source: patient Mode of arrival: ambulatory Limitations: no limitations History of Present Illness HPI Narrative: this is an 78-year-old gentleman that presents with sinus congestion with a fever of 100.1 was started on antibiotic but continues to have sinus pressure and bilateral ear pressure with nasal congestion with no shortness of breath does have a nonproductive cough with no chest pain no abdominal pain no nausea vomiting. MD elicited complaint: fever Onset (ago): day(s) Related Data Home Medications Medication Instructions Recorded Confirmed aspirin 81 mg tablet,delayed 81 mg PO EVERY OTHER DAY 01/24/21 04/25/23 release (Adult Aspirin Regimen) cholecalciferol (vitamin D3) 10 10 mcg PO DAILY 01/24/21 04/25/23 mcg (400 unit) capsule diclofenac sodium 1 % topical gel 2 g topical QID PRN Pain 01/24/21 04/25/23 (Arthritis Pain (diclofenac)) fluticasone propionate 50 2 spray intranasal DAILY 01/24/21 04/25/23 mcg/actuation nasal spray,suspension glucose 4 gram chewable tablet 4 g PO Q15M PRN Hypoglycemia 01/24/21 04/25/23 (Dex4 Glucose) isosorbide mononitrate 60 mg 60 mg PO QAM 01/24/21 04/25/23 tablet,extended release 24 hr ketoconazole 2 % topical cream 1 applic topical DAILY 01/24/21 04/25/23 metoprolol succinate 50 mg 50 mg PO HS 01/24/21 04/25/23 tablet,extended release 24 hr psyllium 1 tbsp PO DAILY 01/24/21 04/25/23 semaglutide 1 mg/dose (2 mg/1.5 1 mg subcut WEEKLY 01/24/21 04/25/23 mL) subcutaneous pen injector (Ozempic) tamsulosin 0.4 mg capsule 0.4 mg PO DAILY 01/24/21 04/25/23 verapamil 240 mg 24 hr 240 mg PO HS 01/24/21 04/25/23 capsule,extended release acetaminophen 650 mg 1,300 mg PO Q12H PRN Pain 04/12/21 04/25/23 tablet,extended release finasteride 5 mg tablet 5 mg PO DAILY 04/12/21 04/25/23 insulin glargine 100 unit/mL (3 20 unit subcut QPM 04/12/21 04/25/23 mL) subcutaneous pen lisinopril 10 1 tablet PO DAILY 04/12/21 04/25/23 mg-hydrochlorothiazide 12.5 mg tablet metformin 1,000 mg tablet 500 mg PO BID 04/12/21 04/25/23 gabapentin 300 mg capsule 900 mg PO DAILY 01/31/22 04/25/23 Allergies Allergy/AdvReac Type Severity Reaction Status Date / Time Penicillins Allergy Unknown ITCHING, Verified 01/31/22 13:18 SWELLING Review of Systems Review of Systems: All systems reviewed & are unremarkable except as noted in HPI and below PMFSH Past Medical History Medical History Benign prostatic hyperplasia Chronic kidney disease, stage 3 Diabetic peripheral neuropathy Hyperlipidemia Hypertension Insulin dependent type 2 diabetes mellitus Mild coronary artery disease Patient reports mild, nonobstructing coronary artery disease noted on prior cardiac catheterization. Obesity Osteoarthritis Synovial cyst of popliteal space [Nieto], right knee Surgical History Surgical History History of arthroplasty of right knee (06/22/21) History of arthroscopy of right knee History of bilateral cataract extraction History of cardiac catheterization Patient reports mild, nonobstructing coronary artery disease noted on prior cardiac catheterization. History of hemorrhoidectomy History of repair of left rotator cuff History of skin graft Right lower extremity. History of tonsillectomy Family History Family History Mother Arthritis Social History Social History Social History: Surrogate decision maker: Manda Ko, spouse. Code status: Full code. Smoking packs per day: 2 Smoking cigarettes per day: 40.0 Years smoked: 40 Smoking pack-years: 80.00 Smoking status: Never smoker Tobacco type: cigarettes Second hand tobacco smoke exposure: Yes (W
[2023-04-25 17:50] VITALS: BP 138/85; PULSE 85; RESP 20; TEMP 36.9; O2SAT 98
== END 2023-04-25 17:55 | disposition home or self-care (01) ==
PROVIDERS: Emergency Provider Emergency Medicine; PCP Internal Medicine
DX: J01.10 Acute frontal sinusitis, unspecified (principal); I12.9 Hypertensive chronic kidney disease with stage 1 through stage 4 chronic kidney disease, or unspecified chronic kidney disease; E11.22 Type 2 diabetes mellitus with diabetic chronic kidney disease; N18.30 Chronic kidney disease, stage 3 unspecified; E78.5 Hyperlipidemia, unspecified; E11.42 Type 2 diabetes mellitus with diabetic polyneuropathy; I25.10 Atherosclerotic heart disease of native coronary artery without angina pectoris; N40.0 Benign prostatic hyperplasia without lower urinary tract symptoms; E66.9 Obesity, unspecified; Z68.35 Body mass index [BMI] 35.0-35.9, adult; Z79.82 Long term (current) use of aspirin; Z79.899 Other long term (current) drug therapy; Z79.4 Long term (current) use of insulin; Z79.84 Long term (current) use of oral hypoglycemic drugs; Z87.891 Personal history of nicotine dependence; Z79.891 Long term (current) use of opiate analgesic; Z20.822 Contact with and (suspected) exposure to COVID-19
CPT/HCPCS: 36415; 71045; 80053; 85025; 87636; 99283

== ENCOUNTER 2024-08-28 08:05 | Outpatient (CLI) | payer MEDICARE, SELFPAY ==
[2024-08-28 09:38] LABS: Alanine Aminotransferase 23 U/L (16-63); Albumin Level 3.5 g/dL (3.4-5.0); Alkaline Phosphatase 69 U/L (46-116); Anion Gap 10 mmol/L (4-12); Aspartate Amino Transferase 18 U/L (15-37); Bilirubin Direct 0.1 mg/dL (0-0.2); Bilirubin,Total 0.6 mg/dL (0.00-1.00); Blood Urea Nitrogen 39 mg/dL (7-18); Calcium 9.1 mg/dL (8.5-10.1); Carbon Dioxide 28 mmol/L (21-32); Chloride 104 mmol/L (98-108); Cholesterol 176 mg/dL (0-200); Estimated Glomerular Filt Rate 26; Glucose 201 mg/dL (70-99); HDL Direct 56 mg/dL (40-60); LDL Cholesterol Calculated 85 mg/dL (<130); Osmolality Calculated 309 mOsm/kg (285-295); Potassium 4.6 mmol/L (3.5-5.1); Sodium 142 mmol/L (136-145); Total Protein 6.8 g/dL (6.4-8.2); Triglycerides 177 mg/dL (0-150)
== END 2024-08-28 08:06 | disposition home or self-care (01) ==
LOC: CHSLAB 08:12
DX: E78.00 Pure hypercholesterolemia, unspecified (principal)
CPT/HCPCS: 36415; 80048; 80061; 80076